=== PATIENT | male | born 1945 | race Caucasian/White ===

== ENCOUNTER 2022-02-07 07:29 | Day surgery (SDC) | payer OTHER ==
[2022-02-07] MEDS ORDERED: NA CHLORIDE 0.9% 1,000 ML ONE (08:00)
[2022-02-07] MEDS ORDERED: FENTANYL CITR 100 MCG/2 ML ONE (08:16)
[2022-02-07] MEDS ORDERED: ATROPINE SULF 1 MG/10 ML SYR IV ONE (08:17)
[2022-02-07] MEDS ORDERED: MIDAZOLAM HCL 2 MG/2 ML INJ ONE (08:17)
[2022-02-07] MEDS ORDERED: FLUMAZENIL 0.1 MG/ML (5 mL VIAL) IV ONE (08:17)
[2022-02-07] MEDS ORDERED: MIDAZOLAM HCL 5 ML ONE (08:17)
[2022-02-07] MEDS ORDERED: NA CHLORIDE 0.9% 0 ML ONE (08:17)
[2022-02-07 08:18] LABS: MPV 6.9 fL (7.6-11.3)
[2022-02-07 08:26] LABS: Protime INR 0.92
[2022-02-07] MEDS ORDERED: NALOXONE 0.4 MG/ML VIAL ONE (08:35)
[2022-02-07 08:49] VITALS: BMI 30.4
--- NOTE | 2022-02-07 11:51 | RAD REPORT ---
EXAM DESCRIPTION: RAD - Chest Single View - 02/07/2022 11:46 am CLINICAL HISTORY: POST BIOPSY COMPARISON: No comparisons FINDINGS: Post biopsy changes in the right lung. No appreciable pneumothorax identified. The lungs a re otherwise unchanged. Heart size is within normal limits. IMPRESSION: No pneumothorax following right-sided lung biopsy.
--- NOTE | 2022-02-07 12:05 | RAD REPORT ---
EXAM DESCRIPTION: CT - Lung Biopsy Perc w/CT - 02/07/2022 10:30 am CLINICAL HISTORY: MASS COMPARISON: Ct Skull/Thigh dated 01/11/2022 FINDINGS: Preoperative diagnosis: Right upper lobe lung lesion Post operative diagnosis: Same Conscious Sedation: 0.5 mg Versed. 25 mcg Fentanyl. 30 minutes of face to face time. Patient was continuously monitored by nursing staff. Contrast used: NONE Estimated blood loss: less than 5 mL Specimens: 2 x 18 gauge core samples Postprocedure imaging demonstrated no complications. Samples were given to pathology for analysis. Th e patient tolerated the procedure without immediate complication and transferred to the recovery room in stable condition. All CT scans are performed using dose optimization technique as appropriate and may include automated exposure control or mA/KV adjustment according to patient size. IMPRESSION: Technically successful CT-guided core biopsy of a suspicious right upper lobe lung carlin [email or web address] Note that the more peripheral lesion in the right upper lobe was biopsied given the close approxim ation of the lesion and aorta on the pre-procedural CT.
--- NOTE | 2022-02-07 12:46 | RAD REPORT ---
EXAM DESCRIPTION: RAD - Chest Single View - 02/07/2022 12:39 pm CLINICAL HISTORY: POST BIOPSY COMPARISON: Chest Single View dated 02/07/2022 FINDINGS: Similar post biopsy changes the right lung. No pneumothorax . No other significant change. IMPRESSION: No pneumothorax following right-sided lung biopsy.
[2022-02-07 12:51] VITALS: O2SAT 98
[2022-02-07 12:52] VITALS: BP 141/62; TEMP 98.4
== END 2022-02-07 13:55 | disposition home or self-care (01) ==
LOC: DS 07:29
PROVIDERS: ATTEND Radiology Radiation Oncology
PROC: 0BDC4ZX Extraction of Right Upper Lung Lobe, Percutaneous Endoscopic Approach, Diagnostic (ICD-10-PCS; principal; 2022-02-07)
DX: C34.11 Malignant neoplasm of upper lobe, right bronchus or lung (principal); C61 Malignant neoplasm of prostate
CPT/HCPCS: 36415; 85049; 85610; 88305; 85730; 77012; 71045 ×2; 32408; J2250 ×2; J3010; J7030; J2310; J7040